=== PATIENT | male | born 1965 | race African-American/Black ===

== ENCOUNTER 2021-04-10 14:32 | Emergency (ER) | payer MEDICAID ==
[~2021-04-10] VITALS: Ht 170.2 cm; Wt 68.9 kg
[2021-04-10 15:05] VITALS: BP 155/98
[2021-04-10] MEDS ORDERED: LIDOCAINE MPF 1% 10 MG/ML VIAL INJ ONE (15:25)
--- NOTE | 2021-04-10 15:28 | NUR ---
PT AMBULATED TO BED 9
--- NOTE | 2021-04-10 15:42 | NUR ---
TDAP VACCINE CONSENT SIGNED AND PLACED INTO PATIENT CHART
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
--- NOTE | 2021-04-10 16:00 | NUR ---
PA DE JESUS BEDSIDE PERFORMING SUTURE
[2021-04-10] MEDS ORDERED: IBUP-2213 PO (16:14)
[2021-04-10] MEDS ORDERED: BACI1PAC6 TP (16:14)
[2021-04-10] MEDS ORDERED: BACITRACIN OINT 500 UNITS/GM PKT TP ONE (16:20)
--- NOTE | 2021-04-10 16:24 | NUR ---
Patient discharged with v/s stable. Written and verbal after care instructions given and explained. Patient alert, oriented and verbalized understanding of instructions. Ambulatory with steady gait. All questions addressed prior to discharge. ID band removed. Patient advised to follow up with PMD. Rx of IBUPROFEN AND BACITRACIN given. Patient educated on indication of medication including possible reaction and side effects. Opportunity to ask questions provided and answered.
--- NOTE | 2021-04-10 16:31 | NUR ---
PATIENT'S INDEX FINGER WAS DRESSED WITH BACITRACIN, NONADHERENT DRESSING AND GAUZE ROLL. IT WAS THEN PLACED IN A FINGER SPLINT. Addendum: 04/10/21 at 1632 by [email or web address] PATIENT'S INDEX FINGER ON RIGHT HAND WAS DRESSED WITH BACITRACIN, NONADHERENT DRESSING AND GAUZE ROLL. IT WAS THEN PLACED IN A FINGER SPLINT.
== END 2021-04-10 16:24 | disposition home or self-care (01) ==
LOC: MED 14:32
DX: S61.210A Laceration without foreign body of right index finger without damage to nail, initial encounter (principal); Z79.899 Other long term (current) drug therapy; W45.8XXA Other foreign body or object entering through skin, initial encounter; Y93.89 Activity, other specified; Y92.89 Other specified places as the place of occurrence of the external cause; Y99.8 Other external cause status
CPT/HCPCS: 12001; 90471; 90715; 99283; J2001